=== PATIENT | female | born 2005 | race Caucasian/White ===

== ENCOUNTER 2024-09-26 08:25 | Day surgery (SDC) | payer OTHER, SELFPAY ==
[2024-09-26] VITALS (14 sets, daily range): BP systolic 99–131; BP diastolic 77–103; PULSE 70–95; RESP 12–27; TEMP 36.2–37.3; O2SAT 96–100; BMI 21.2
[2024-09-26 08:54] LABS: Ur HCG Qualitative* Negative (Negative)
[2024-09-26] MEDS: LACTATED RINGERS 1000 ML 1,000 ML 35 ML IV (09:00)
--- NOTE | 2024-09-26 09:18 | P.ANES_ITS ---
Anesthesia Charges Start Date/Time Anesthesia Start Date: 09/26/24 Anesthesia Start Time: 08:25 Stop Date/Time Anesthesia Stop Date: 09/26/24 Anesthesia Stop Time: 09:11 Coding CPT Codes CPT Codes: ANESTH PROCEDURE ON MOUTH - 67222 ([id number]) P3 - PATIENT W/SEVERE SYS DISEASE, QK - LINOLEUM LAYER APPRENTICE 2-4 CNCRNT ANES PROC
--- NOTE | 2024-09-26 09:18 | W.ANESCHARGE ---
Anesthesia Charges Start Date/Time Anesthesia Start Date: 09/26/24 Anesthesia Start Time: 08:25 Stop Date/Time Anesthesia Stop Date: 09/26/24 Anesthesia Stop Time: 09:11 Coding CPT Codes CPT Codes: ANESTH PROCEDURE ON MOUTH - 80045 ([id number]) P3 - PATIENT W/SEVERE SYS DISEASE, QK - CAREER SERVICES COORDINATOR 2-4 CNCRNT ANES PROC
--- NOTE | 2024-09-26 09:48 | SUR.OPER ---
PATIENT QUESTIONS ANSWERED SATISFACTORILY PREOPERATIVELY. PATIENT BROUGHT TO OR #1 PER CART. Patient positioned supine on OR #1 bed. Perioperative team wrapped arms bilaterally at patient side with drawsheet. ? Final approval of positioning by surgeon.
--- NOTE | 2024-09-26 09:57 | W.PM.ENTPROC ---
Procedure Note Date of procedure: 09/26/24 Procedure: Preop diagnosis chronic tonsillitis, tonsillar hypertrophy Postoperative diagnosis same Procedure tonsillectomy Under general trach anesthesia patient was prepped and draped usual fashion. The McIvor mouth gag was inserted the tongue retracted forward. The nasopharynx was inspected with a laryngeal mirror and no significant adenoid tissue was noted. The right tonsil was removed with a combination of needlepoint and bipolar cautery. Hemostasis was achieved with suction cautery. This was repeated on the left side in identical fashion. Patient was extubated the operating room and taken recovery in satisfactory condition. Tolerated the procedure well. Blood loss 5 mL. Surgeon: Wally Peterson MD
--- NOTE | 2024-09-26 10:15 | P.ANES_ITS ---
Anesthesia Charges Start Date/Time Anesthesia Start Date: 09/26/24 Anesthesia Start Time: 09:38 Stop Date/Time Anesthesia Stop Date: 09/26/24 Anesthesia Stop Time: 10:15 Coding CPT Codes CPT Codes: ANESTH PROCEDURE ON MOUTH - 67484 ([id number]) P1 - NORMAL HEALTHY PATIENT, K - TOY ASSEMBLER WOOD 2-4 CNCRNT ANES PROC
--- NOTE | 2024-09-26 10:15 | W.ANESCHARGE ---
Anesthesia Charges Start Date/Time Anesthesia Start Date: 09/26/24 Anesthesia Start Time: 09:38 Stop Date/Time Anesthesia Stop Date: 09/26/24 Anesthesia Stop Time: 10:15 Coding CPT Codes CPT Codes: ANESTH PROCEDURE ON MOUTH - 04663 ([id number]) P1 - NORMAL HEALTHY PATIENT, K - JEEPER OPERATOR 2-4 CNCRNT ANES PROC
[2024-09-26] MEDS: LACTATED RINGERS 1000 ML 1,000 ML 100 ML IV (10:20)
--- NOTE | 2024-09-26 10:20 | P.ANES_ITS ---
Anesthesia Charges Start Date/Time Anesthesia Start Date: 09/26/24 Anesthesia Start Time: 09:38 Stop Date/Time Anesthesia Stop Date: 09/26/24 Anesthesia Stop Time: 10:15 Coding CPT Codes CPT Codes: ANESTH PROCEDURE ON MOUTH - 14423 ([id number]) P1 - NORMAL HEALTHY PATIENT, QK - SKIP TENDER 2-4 CNCRNT ANES PROC, QX - ELECTRIC GOLF CART REPAIRERS [place] W/ MED DIRECTION
--- NOTE | 2024-09-26 10:20 | W.ANESCHARGE ---
Anesthesia Charges Start Date/Time Anesthesia Start Date: 09/26/24 Anesthesia Start Time: 09:38 Stop Date/Time Anesthesia Stop Date: 09/26/24 Anesthesia Stop Time: 10:15 Coding CPT Codes CPT Codes: ANESTH PROCEDURE ON MOUTH - 64665 ([id number]) P1 - NORMAL HEALTHY PATIENT, QK - DREDGE MASTER 2-4 CNCRNT ANES PROC, QX - [place] ATTENDANT [place] W/ MED DIRECTION
--- NOTE | 2024-09-26 10:48 | SUR.PHASEI ---
patient met discharge criteria per anesthesia
[2024-09-26] MEDS: OXYCODONE 1 MG/ML ORAL SOLN 5 MG PO (11:18)
[2024-09-26] MEDS: IBUPROFEN 100 MG/5 ML SUSP 200 MG PO (11:19)
== END 2024-09-26 12:24 | disposition home or self-care (01) ==
LOC: OR 08:26
PROVIDERS: Anesthesiology; PCP Family Medicine; Visit Provider Otolaryngology
PROC: (CPT 42826; principal; 2024-09-26 09:45)
DX: J35.01 Chronic tonsillitis (principal)
CPT/HCPCS: 42826; 00170; 81025; 88304; A9270; J2250; J2704; J3010; J7120